=== PATIENT | female | born 1980 | race Caucasian/White ===

== ENCOUNTER → 2017-03-12 | Outpatient (CLI) | payer OTHER | END | disposition home or self-care (01) | LOC: LAB 07:43 | PROVIDERS: ATTEND Obstetrics & Gynecology Reproductive Endocrinology | DX: N91.2 Amenorrhea, unspecified (principal) | CPT/HCPCS: 36415; 84702 ==

== ENCOUNTER → 2017-03-20 | Outpatient (CLI) | payer OTHER | END | disposition home or self-care (01) | LOC: LAB 07:51 | PROVIDERS: ATTEND Obstetrics & Gynecology Reproductive Endocrinology | DX: N91.2 Amenorrhea, unspecified (principal) | CPT/HCPCS: 36415; 84702 ==

== ENCOUNTER → 2017-03-24 | Outpatient (CLI) | payer OTHER | END | disposition home or self-care (01) | LOC: LAB 08:36 | PROVIDERS: ATTEND Obstetrics & Gynecology Reproductive Endocrinology | DX: N91.2 Amenorrhea, unspecified (principal) | CPT/HCPCS: 36415; 84702 ==

== ENCOUNTER 2017-03-25 08:19 | Emergency (ER) | payer OTHER ==
[~2017-03-25] VITALS: Ht 167.6 cm; Wt 54.8 kg
[2017-03-25] MEDS ORDERED: SODIUM CHLORIDE 0.9% 1,000 ML IV ONE (08:38)
[2017-03-25] MEDS ORDERED: SODIUM CHLORIDE 0.9% 1,000ML IVBOLUS ONE (09:00)
[2017-03-25] MEDS ORDERED: SODIUM CHLORIDE FLUSH 10ML SYR IVF ONE (09:00)
[2017-03-25 09:07] LABS: ASPARTATE AMINO TRANSFERASE 175 U/L (15-37); BLOOD UREA NITROGEN 11 mg/dL (7-18)
[2017-03-25 10:51] VITALS: BP 122/78
== END 2017-03-25 12:33 | disposition home or self-care (01) ==
LOC: ED 12:13
DX: O03.9 Complete or unspecified spontaneous abortion without complication (principal); O02.0 Blighted ovum and nonhydatidiform mole; O98.411 Viral hepatitis complicating pregnancy, first trimester; B17.9 Acute viral hepatitis, unspecified; R94.5 Abnormal results of liver function studies; R74.0 Nonspecific elevation of levels of transaminase and lactic acid dehydrogenase [LDH]; Z3A.01 Less than 8 weeks gestation of pregnancy
CPT/HCPCS: 36415; 76700; 76801; 80053; 81001; 83690; 84702; 85025; 86704; 86706; 86708; 86803; 86901; 87340; 96360; 96361; 99285; J7030

== ENCOUNTER → 2017-03-27 | Outpatient (CLI) | payer OTHER | END | disposition home or self-care (01) | LOC: LAB 09:12 | PROVIDERS: ATTEND Obstetrics & Gynecology Reproductive Endocrinology | DX: N92.1 Excessive and frequent menstruation with irregular cycle (principal) | CPT/HCPCS: 36415; 84702 ==

== ENCOUNTER → 2017-03-28 | Outpatient (CLI) | payer OTHER ==
[2017-03-28 08:40] LABS: BLOOD UREA NITROGEN 18 mg/dL (7-18)
[2017-03-28 08:43] LABS: ASPARTATE AMINO TRANSFERASE 115 U/L (15-37)
[2017-03-31 18:06] LABS: ANA DIRECT (REF) Negative (Negative)
[2017-04-01 04:46] LABS: ENDOMYSIAL IGA Negative (Negative); IMMUNOGLOBULIN A 318 mg/dL (87-352)
== END | disposition home or self-care (01) ==
LOC: LAB 07:52
PROVIDERS: ATTEND Internal Medicine Gastroenterology
DX: R79.89 Other specified abnormal findings of blood chemistry (principal); R94.5 Abnormal results of liver function studies
CPT/HCPCS: 36415; 80053; 82239; 82248; 82784; 82977; 83516; 84439; 84443; 85025; 85610; 86038; 86255; 86665

== ENCOUNTER → 2017-04-07 | Outpatient (CLI) | payer OTHER | END | disposition home or self-care (01) | LOC: LAB 10:02 | PROVIDERS: ATTEND Obstetrics & Gynecology Reproductive Endocrinology | DX: N91.2 Amenorrhea, unspecified (principal) | CPT/HCPCS: 36415; 84702 ==

== ENCOUNTER → 2017-04-09 | Outpatient (CLI) | payer OTHER ==
[2017-04-09 08:02] LABS: ASPARTATE AMINO TRANSFERASE 21 U/L (15-37); BLOOD UREA NITROGEN 13 mg/dL (7-18)
== END | disposition home or self-care (01) ==
LOC: LAB 07:33
PROVIDERS: ATTEND Obstetrics & Gynecology Reproductive Endocrinology
DX: N91.2 Amenorrhea, unspecified (principal); R94.5 Abnormal results of liver function studies; R79.89 Other specified abnormal findings of blood chemistry
CPT/HCPCS: 36415; 80053; 82977; 84702; 85025; 85610

== ENCOUNTER → 2017-04-23 | Outpatient (CLI) | payer OTHER ==
[2017-04-23 08:10] LABS: ASPARTATE AMINO TRANSFERASE 21 U/L (15-37); BLOOD UREA NITROGEN 14 mg/dL (7-18)
== END | disposition home or self-care (01) ==
LOC: LAB 07:41
PROVIDERS: ATTEND Obstetrics & Gynecology Reproductive Endocrinology
DX: O03.9 Complete or unspecified spontaneous abortion without complication (principal); O02.81 Inappropriate change in quantitative human chorionic gonadotropin (hCG) in early pregnancy; E78.5 Hyperlipidemia, unspecified; E55.9 Vitamin D deficiency, unspecified; Z3A.01 Less than 8 weeks gestation of pregnancy
CPT/HCPCS: 36415; 80053; 80061; 82306; 84702; 85027

== ENCOUNTER → 2017-04-30 | Outpatient (CLI) | payer OTHER | END | disposition home or self-care (01) | LOC: LAB 07:35 | PROVIDERS: ATTEND Obstetrics & Gynecology Reproductive Endocrinology | DX: N91.2 Amenorrhea, unspecified (principal) | CPT/HCPCS: 36415; 84702 ==

== ENCOUNTER → 2017-05-23 | Outpatient (CLI) | payer OTHER ==
[2017-05-26 22:05] LABS: BETA-2 GLYCOPROTEIN I IGA <9 (0-25)
== END | disposition home or self-care (01) ==
LOC: LAB 10:06
PROVIDERS: ATTEND Obstetrics & Gynecology Reproductive Endocrinology
DX: D68.9 Coagulation defect, unspecified (principal)
CPT/HCPCS: 36415; 85613; 85732; 86146; 86147; 86148

== ENCOUNTER → 2017-09-19 | Outpatient (CLI) | payer OTHER | END | disposition home or self-care (01) | LOC: LAB 07:58 | PROVIDERS: ATTEND Obstetrics & Gynecology Reproductive Endocrinology | DX: N91.2 Amenorrhea, unspecified (principal) | CPT/HCPCS: 36415; 84702 ==

== ENCOUNTER → 2017-09-22 | Outpatient (CLI) | payer OTHER | END | disposition home or self-care (01) | LOC: LAB 08:27 | PROVIDERS: ATTEND Obstetrics & Gynecology Reproductive Endocrinology | DX: N91.2 Amenorrhea, unspecified (principal) | CPT/HCPCS: 36415; 84702 ==

== ENCOUNTER → 2017-09-29 | Outpatient (CLI) | payer OTHER | END | disposition home or self-care (01) | LOC: LAB 07:56 | PROVIDERS: ATTEND Obstetrics & Gynecology Reproductive Endocrinology | DX: N91.2 Amenorrhea, unspecified (principal) | CPT/HCPCS: 36415; 84702 ==

== ENCOUNTER 2017-10-07 12:00 | Emergency (ER) | payer OTHER ==
[~2017-10-07] VITALS: Ht 165.1 cm; Wt 60.7 kg
[2017-10-07 12:17] VITALS: BP 126/84
== END 2017-10-07 13:24 | disposition home or self-care (01) ==
LOC: ED 13:18
DX: S86.112A Strain of other muscle(s) and tendon(s) of posterior muscle group at lower leg level, left leg, initial encounter (principal); X58.XXXA Exposure to other specified factors, initial encounter; Y93.89 Activity, other specified; Y92.89 Other specified places as the place of occurrence of the external cause; Y99.8 Other external cause status
CPT/HCPCS: 99284

== ENCOUNTER → 2018-08-03 | Outpatient (CLI) | payer OTHER | END | disposition home or self-care (01) | LOC: LAB 08:31 | PROVIDERS: ATTEND Obstetrics & Gynecology Reproductive Endocrinology | DX: N91.2 Amenorrhea, unspecified (principal) | CPT/HCPCS: 36415; 82670; 84144 ==

== ENCOUNTER → 2018-08-10 | Outpatient (CLI) | payer OTHER | END | disposition home or self-care (01) | LOC: LAB 08:20 | PROVIDERS: ATTEND Obstetrics & Gynecology Reproductive Endocrinology | DX: N91.2 Amenorrhea, unspecified (principal) | CPT/HCPCS: 36415; 82670; 84144; 84702 ==

== ENCOUNTER → 2018-08-17 | Outpatient (CLI) | payer OTHER | END | disposition home or self-care (01) | LOC: LAB 08:28 | PROVIDERS: ATTEND Obstetrics & Gynecology Reproductive Endocrinology | DX: N91.2 Amenorrhea, unspecified (principal) | CPT/HCPCS: 36415; 82670; 84144; 84702 ==

== ENCOUNTER → 2018-11-03 | Outpatient (CLI) | payer OTHER ==
[2018-11-03 14:17] LABS: BASOPHILS # (AUTO) 0.01 x10^3/uL (0-0.1); BASOPHILS % (AUTO) 0 % (0-1); EOSINOPHILS # (AUTO) 0.05 x10^3/uL (0-0.4); EOSINOPHILS % (AUTO) 0 % (1-7); LYMPHOCYTES % (AUTO) 13 % (22-44); MD NO; MEAN CORPUSCULAR HEMOGLOBIN 31.2 pg (27.0-34.8); MEAN CORPUSCULAR HGB CONC 34.8 g/dL (32.4-35.8); MEAN CORPUSCULAR VOLUME 89.8 fL (80-100); MEAN PLATELET VOLUME 7.8 fL (7.4-10.4); MONOCYTES # (AUTO) 1.22 x10^3/uL (0.2-0.8); MONOCYTES % (AUTO) 7 % (2-9); NEUTROPHILS # (AUTO) 13.78 x10^3/uL (1.8-6.8); NEUTROPHILS % (AUTO) 79 % (42-75); PLATELET COUNT 362 x10^3/uL (130-400); RED BLOOD COUNT 4.55 x10^6/uL (3.82-5.3); RED CELL DISTRIBUTION WIDTH 12.9 % (9.6-15.2)
[2018-11-03 14:25] LABS: ALANINE AMINOTRANSFERASE 30 U/L (12-78); ALBUMIN 2.9 g/dL (3.4-5.0); ANION GAP 10 mmol/L (5-15); CALCIUM 9.1 mg/dL (8.5-10.1); CHLORIDE 106 mmol/L (98-107); CREATININE 0.59 mg/dL (0.55-1.02)
[2018-11-03 14:28] LABS: ALKALINE PHOSPHATASE 70 U/L (45-117); BILIRUBIN,TOTAL 0.2 mg/dL (0.2-1.0)
== END | disposition home or self-care (01) ==
LOC: LAB 14:04
PROVIDERS: ATTEND Nurse Practitioner Family
DX: R94.5 Abnormal results of liver function studies (principal)
CPT/HCPCS: 36415; 80053; 85025

== ENCOUNTER → 2019-01-01 | Outpatient (CLI) | payer OTHER ==
[2019-01-01 13:01] LABS: BASOPHILS # (AUTO) 0.03 x10^3/uL (0-0.1); BASOPHILS % (AUTO) 0 % (0-1); EOSINOPHILS # (AUTO) 0.07 x10^3/uL (0-0.4); EOSINOPHILS % (AUTO) 1 % (1-7); LYMPHOCYTES # (AUTO) 1.94 x10^3/uL (1-3.4); LYMPHOCYTES % (AUTO) 15 % (22-44); MD NO; MEAN CORPUSCULAR HEMOGLOBIN 30.7 pg (27.0-34.8); MEAN CORPUSCULAR HGB CONC 33.9 g/dL (32.4-35.8); MEAN CORPUSCULAR VOLUME 90.5 fL (80-100); MEAN PLATELET VOLUME 9.1 fL (7.4-10.4); MONOCYTES # (AUTO) 0.82 x10^3/uL (0.2-0.8); MONOCYTES % (AUTO) 6 % (2-9); NEUTROPHILS # (AUTO) 9.95 x10^3/uL (1.8-6.8); NEUTROPHILS % (AUTO) 78 % (42-75); PLATELET COUNT 270 x10^3/uL (130-400); RED BLOOD COUNT 4.53 x10^6/uL (3.82-5.3); RED CELL DISTRIBUTION WIDTH 14.4 % (9.6-15.2)
== END | disposition home or self-care (01) ==
LOC: CFH 07:44
PROVIDERS: ATTEND Obstetrics & Gynecology Maternal & Fetal Medicine
DX: O09.521 Supervision of elderly multigravida, first trimester (principal); Z3A.00 Weeks of gestation of pregnancy not specified
CPT/HCPCS: 36415; 82950; 85025; 86592